=== PATIENT | male | born 1940 | race African-American/Black ===

== ENCOUNTER 2017-09-25 13:07 | Emergency (ER) | payer MEDICARE, OTHER ==
[2017-09-25] MEDS ORDERED: ASPIRIN 81 MG TABLET, CHEWABLE PO ONE (13:48)
--- NOTE | 2017-09-25 13:53 | ER Document Report ---
ED Medical Screen (RME) - General Chief Complaint: Epigastric Pain Stated Complaint: CONGESTION Time Seen by Provider: 09/25/17 13:45 Notes: Patient is a 76-year-old male is referred to the emergency department by Dr. De Guzman's office for chest pain evaluation. Patient states that for the past 2 weeks he has been having a burning pressure feeling that resolves with Tums. He also admits to feeling weak. Otherwise he denies any chest pain, cough, fever, chills. TRAVEL OUTSIDE OF THE [place] IN LAST 30 DAYS: No - Related Data Allergies/Adverse Reactions: No Known Allergies Allergy (Unverified 09/25/17 13:48) Past Medical History - Social History Chew tobacco use (# tins/day): No Frequency of alcohol use: None Drug Abuse: None - Past Medical History Cardiac Medical History: Reports: Hx Hypercholesterolemia, Hx Hypertension Renal/ Medical History: Denies: Hx Peritoneal Dialysis Physical Exam - Vital signs Vitals: Temp Pulse Resp BP Pulse Ox 98.4 F 77 14 114/65 100 09/25/17 13:15 09/25/17 13:15 09/25/17 13:15 09/25/17 13:15 09/25/17 13:15 - General General appearance: Appears well, Alert In distress: None - Respiratory Respiratory status: No respiratory distress Chest status: Nontender Breath sounds: Normal Chest palpation: Normal - Cardiovascular Rhythm: Regular Heart sounds: Normal auscultation, S1 appreciated, S2 appreciated Gallop: None auscultated Pulses: Normal: Radial - Abdominal Inspection: Normal Distension: No distension Tenderness: Nontender Course - Vital Signs Vital signs: Temp Pulse Resp BP Pulse Ox 98.4 F 77 14 114/65 100 09/25/17 13:15 09/25/17 13:15 09/25/17 13:15 09/25/17 13:15 09/25/17 13:15
--- NOTE | 2017-09-25 13:57 | EKG REPORT ---
SEVERITY:- ABNORMAL ECG - SINUS RHYTHM LEFT ANTERIOR FASCICULAR BLOCK ANTERIOR INFARCT, RECENT : Confirmed by: Talya Chen 25-Sep-2017 13:56:39
--- NOTE | 2017-09-25 14:13 | ER Document Report ---
ED Cardiac - General Chief Complaint: Epigastric Pain Stated Complaint: CONGESTION Time Seen by Provider: 09/25/17 13:45 Notes: The patient is a 76-year-old male, past medical history hypertension, presents with 2 weeks of epigastric pain and indigestion that would be relieved by Tums. He saw Dr. Barnes, his primary care physician earlier today, and was sent to Dr. Chen's office. Dr. Chen performed an EKG and noticed that he had ST elevations but Q waves are present. He sent the patient over to the ER for further evaluation and admission. TRAVEL OUTSIDE OF THE [place] IN LAST 30 DAYS: No - Related Data Allergies/Adverse Reactions: No Known Allergies Allergy (Unverified 09/25/17 13:48) Past Medical History - General Information source: Patient - Social History Smoking Status: Never Smoker Chew tobacco use (# tins/day): No Frequency of alcohol use: None Drug Abuse: None Family History: Reviewed & Not Pertinent Patient has suicidal ideation: No Patient has homicidal ideation: No - Past Medical History Cardiac Medical History: Reports: Hx Hypercholesterolemia, Hx Hypertension Renal/ Medical History: Denies: Hx Peritoneal Dialysis Review of Systems - Review of Systems Notes: REVIEW OF SYSTEMS: CONSTITUTIONAL: -fevers, -chills EENT: -eye pain, -difficulty swallowing, -nasal congestion CARDIOVASCULAR:-chest pain, -syncope. RESPIRATORY: -cough, -SOB GASTROINTESTINAL: +epigastric pain, - nausea, -vomiting, -diarrhea GENITOURINARY: -dysuria, -hematuria MUSCULOSKELETAL: -back pain, -neck pain SKIN: -rash or skin lesions. HEMATOLOGIC: -easy bruising or bleeding. LYMPHATIC: -swollen, enlarged glands. NEUROLOGICAL: -altered mental status or loss of consciousness, -headache, - neurologic symptoms PSYCHIATRIC: -anxiety, -depression. ALL OTHER SYSTEMS REVIEWED AND NEGATIVE. Physical Exam - Vital signs Vitals: Temp Pulse Resp BP Pulse Ox 98.4 F 77 14 114/65 100 09/25/17 13:15 09/25/17 13:15 09/25/17 13:15 09/25/17 13:15 09/25/17 13:15 - Notes Notes: PHYSICAL EXAMINATION: GENERAL: Well-appearing, well-nourished and in no acute distress. HEAD: Atraumatic, normocephalic. EYES: Pupils equal round and reactive to light, extraocular movements intact, sclera anicteric, conjunctiva are normal. ENT: nares patent, oropharynx clear without exudates. Moist mucous membranes. NECK: Normal range of motion, supple without lymphadenopathy LUNGS: Breath sounds clear to auscultation bilaterally and equal. No wheezes rales or rhonchi. HEART: Regular rate and rhythm without murmurs ABDOMEN: Soft, nontender, normoactive bowel sounds. No guarding, no rebound. No masses appreciated. EXTREMITIES: Normal range of motion, no pitting or edema. No cyanosis. NEUROLOGICAL: Cranial nerves grossly intact. Normal speech, normal gait. Normal sensory and motor exams. PSYCH: Normal mood, normal affect. SKIN: Warm, Dry, normal turgor, no rashes or lesions noted. Course - Re-evaluation Re-evalutation: Pt without any symptoms at this time. His EKG shows ST elevations in anterolateral leads with large Q-waves. Troponin is 5.23. Spoke to Dr. Chen ( Investigation Clerk who saw patient and EKG this morning and sent to [facility]) at 16:33 about results and he recommends transfer to facility with interventional cath capabilities. He recommends starting Lovenox. Pt remains chest pain and symptom -free. 09/25/17 16:41 [facility] Placed call to transfer center and awaiting callback. 09/25/17 18:57 Spoke to Investigation Clerk from [facility], Dr. Arthur, and he has accepted patient. Pt resting comfortably. Awaiting bed assignment. - Vital Signs Vital signs: Temp Pulse Resp BP Pulse Ox 98.4 F 77 16 108/64 98 09/25/17 13:15 09/25/17 13:15 09/25/17 18:18 09/25/17 18:18 09/25/17 18:18 - Laboratory Result Diagrams: 09/25/17 14:05 09/25/17 14:05 Laboratory results interpreted by me: 09/25/17 09/25/17 14:05 14:05 RBC 4.16 L Hgb 13.2 L RDW 14.1 H Potassium 3.4 L Carbon Dioxide 32 H Creatinine 1.31 H Est GFR (Non-Af Amer) 53 L - Diagnostic Test Radiology reviewed: Image reviewed, Reports reviewed Radiology results interpreted by me: CXR: NAD - EKG Interpretation by Me EKG shows normal: Sinus rhythm, [place], Intervals, QRS Complexes Rate: Normal When compared to previous EKG there are: No significant change Additional EKG results interpreted by me: Anterolateral ST elevations with Q-waves. Discharge - Discharge Clinical Impression: NSTEMI (non-ST elevated myocardial infarction) Condition: Serious Disposition: [facility] Referrals: ALANA BARNES MD [Primary Care Provider] - Follow up as needed
[2017-09-25 14:28] LABS: ABSOLUTE BASOPHILS # (AUTO) 0.1 10^3/uL (0.0-0.2); ABSOLUTE EOSINOPHILS # (AUTO) 0.2 10^3/uL (0.0-0.6); ABSOLUTE LYMPHOCYTES (AUTO) 1.8 10^3/uL (0.5-4.7); ABSOLUTE MONOCYTES (AUTO) 0.7 10^3/uL (0.1-1.4); ABSOLUTE NEUT (AUTO) 4.9 10^3/uL (1.7-8.2); BASOPHILS % (AUTO) 1.4 % (0-2); EOSINOPHILS % (AUTO) 2.3 % (0-6); HEMATOCRIT 38.4 % (37.9-51.0); HEMOGLOBIN 13.2 g/dL (13.5-17.0); HGB HCT DIFFERENCE 1.2; MEAN CORPUSCULAR HEMOGLOBIN 31.8 pg (27.0-33.4); MEAN CORPUSCULAR HGB CONC 34.5 g/dL (32.0-36.0); MEAN CORPUSCULAR VOLUME 92 fl (80-97); RED BLOOD COUNT 4.16 10^6/uL (4.35-5.55); RED CELL DISTRIBUTION WIDTH 14.1 % (11.5-14.0); SEGMENTED NEUTROPHILS % (AUTO) 64.3 % (42-78); WHITE BLOOD COUNT 7.7 10^3/uL (4.0-10.5)
--- NOTE | 2017-09-25 14:54 | RADIOLOGY REPORT (SQ) ---
EXAM DESCRIPTION: CHEST SINGLE VIEW COMPLETED DATE/TIME: 09/25/2017 2:29 pm REASON FOR STUDY: chest pain COMPARISON: 07/06/2009 EXAM PARAMETERS: NUMBER OF VIEWS: One view. TECHNIQUE: Single frontal radiographic view of the chest acquired. RADIATION DOSE: NA LIMITATIONS: Lordotic portable chest film with EKG leads present FINDINGS: LUNGS AND PLEURA: No opacities, masses or pneumothorax. No pleural effusion. MEDIASTINUM AND HILAR STRUCTURES: No masses. Contour normal. HEART AND VASCULAR STRUCTURES: Heart normal in size. Normal vasculature. BONES: No acute findings. HARDWARE: None in the chest. OTHER: No other significant finding. IMPRESSION: NO ACUTE RADIOGRAPHIC FINDING IN THE CHEST. TECHNICAL DOCUMENTATION: JOB ID: [id number] [employer]- All Rights Reserved
[2017-09-25 14:56] LABS: ALANINE AMINOTRANSFERASE 34 U/L (21-72); ALBUMIN 3.7 g/dL (3.5-5.0); ALKALINE PHOSPHATASE 62 U/L (38-126); ANION GAP 13 (5-19); ASPARTATE AMINO TRANSFERASE 45 U/L (17-59); BILIRUBIN,DIRECT 0.4 mg/dL (0.0-0.4); BILIRUBIN,TOTAL 0.5 mg/dL (0.2-1.3); BLOOD UREA NITROGEN 19 mg/dL (7-20); CALCIUM 9.4 mg/dL (8.4-10.2); CARBON DIOXIDE 32 mmol/L (22-30); CHLORIDE 100 mmol/L (98-107); CREATINE KINASE 134 U/L (55-170); CREATININE RESULT 1.31 mg/dL (0.52-1.25); GLUCOSE 95 mg/dL (75-110); POTASSIUM 3.4 mmol/L (3.6-5.0); SODIUM 144.7 mmol/L (137-145); TOTAL PROTEIN 7.8 g/dL (6.3-8.2)
[2017-09-25] MEDS ORDERED: ENOXAPARIN SODIUM INJ 100 MG/1 ML DISP.SYRIN SUBCUT SCH ×2 (16:45→18:00)
[2017-09-25 22:12] VITALS: BP 95/53
== END 2017-09-25 22:12 | disposition short-term general hospital (02) ==
LOC: ER 13:07
DX: I21.4 Non-ST elevation (NSTEMI) myocardial infarction (principal); I10 Essential (primary) hypertension; K30 Functional dyspepsia
CPT/HCPCS: 93005; 99285; 36415; 82550; 85025; 80053; 84484; 71010; 93010; A9270

== ENCOUNTER 2017-11-17 06:06 | Inpatient (IN) | payer MEDICARE, OTHER ==
[2017-11-17] MEDS ORDERED: FUROSEMIDE INJ/PF 40 MG/4 ML SDV IV ONE (06:53)
[2017-11-17 07:07] LABS: ABSOLUTE BASOPHILS # (AUTO) 0.1 10^3/uL (0.0-0.2); ABSOLUTE EOSINOPHILS # (AUTO) 0.3 10^3/uL (0.0-0.6); ABSOLUTE LYMPHOCYTES (AUTO) 1.4 10^3/uL (0.5-4.7); ABSOLUTE MONOCYTES (AUTO) 0.7 10^3/uL (0.1-1.4); ABSOLUTE NEUT (AUTO) 7.4 10^3/uL (1.7-8.2); BASOPHILS % (AUTO) 0.9 % (0-2); EOSINOPHILS % (AUTO) 2.8 % (0-6); HEMATOCRIT 36.3 % (37.9-51.0); HEMOGLOBIN 12.1 g/dL (13.5-17.0); LYMPHOCYTES % (AUTO) 14.1 % (13-45); MEAN CORPUSCULAR HEMOGLOBIN 31.3 pg (27.0-33.4); MEAN CORPUSCULAR HGB CONC 33.3 g/dL (32.0-36.0); MEAN CORPUSCULAR VOLUME 94 fl (80-97); MONOCYTES % (AUTO) 7.3 % (3-13); PLATELET COUNT 298 10^3/uL (150-450); RED BLOOD COUNT 3.86 10^6/uL (4.35-5.55); RED CELL DISTRIBUTION WIDTH 17.2 % (11.5-14.0); SEGMENTED NEUTROPHILS % (AUTO) 74.9 % (42-78); TOTAL CELLS COUNTED % (AUTO) 100 %; WHITE BLOOD COUNT 9.9 10^3/uL (4.0-10.5)
--- NOTE | 2017-11-17 07:07 | ER Document Report ---
ED General - General Mode of Arrival: Ambulatory Information source: Patient TRAVEL OUTSIDE OF THE [place] IN LAST 30 DAYS: No <LUIS CARLOS MONET - Last Filed: 11/17/17 15:44> <ZULEIMA MONTAÑO - Last Filed: 11/17/17 17:53> - General Chief Complaint: Shortness Of Breath Stated Complaint: DIFFICULTY BREATHING Time Seen by Provider: 11/17/17 06:40 Notes: Patient is a 77 year old male with a history of CABG presents to the emergency department complaining of difficulty breathing onset around 0000 this morning. Patient states his difficulty breathing is exacerbated when supine but relieved when sitting up. Patient also complains of urinary frequency but determined this is due to his prescription of Lasix. Patient denies any chest pain. PCP is Dr. De Guzman. (LUIS CARLOS MONET) - Related Data Allergies/Adverse Reactions: No Known Allergies Allergy (Verified 11/17/17 06:07) Home Medications: Current Home Medications Amiodarone HCl [Cordarone 200 mg Tablet] 200 mg PO Q12 11/17/17 [History] Aspirin [Ecotrin 81 mg EC Tablet] 81 mg PO DAILY 11/17/17 [History] Atorvastatin Calcium [Lipitor 40 mg Tablet] 40 mg PO DAILY 11/17/17 [History] Carvedilol [Coreg 12.5 mg Tablet] 12.5 mg PO Q12 11/17/17 [History] Furosemide [Lasix 40 mg Tablet] 40 mg PO DAILY 11/17/17 [History] Multivitamin [Tab-A-Naty (Multiple Vitamin) Tablet] 1 tab PO DAILY 11/17/17 [ History] Oxycodone HCl/Acetaminophen [Percocet 5-325 mg Tablet] 1 tab PO Q6HP PRN [History] Past Medical History - General Information source: Patient - Social History Smoking Status: Current Some Day Smoker Smoking Education Provided: Yes - > 4 mins Frequency of alcohol use: None Drug Abuse: Marijuana Family History: Reviewed & Not Pertinent Patient has suicidal ideation: No Patient has homicidal ideation: No - Past Medical History Cardiac Medical History: Reports: Hx Heart Attack, Hx Hypercholesterolemia, Hx Hypertension Past Surgical History: Reports: Hx Cardiac Surgery - bypass <LUIS CARLOS MONET - Last Filed: 11/17/17 15:44> Review of Systems - Review of Systems Constitutional: No symptoms reported EENT: No symptoms reported Cardiovascular: No symptoms reported Respiratory: See HPI Gastrointestinal: No symptoms reported Genitourinary: No symptoms reported Male Genitourinary: No symptoms reported Skin: No symptoms reported Hematologic/Lymphatic: No symptoms reported Neurological/Psychological: No symptoms reported -: Yes All other systems reviewed and negative <LUIS CARLOS MONET - Last Filed: 11/17/17 15:44> Physical Exam <TIERNEYHERIBERTOREGLA - Last Filed: 11/17/17 15:44> <ZULEIMA MONTAÑO - Last Filed: 11/17/17 17:53> - Vital signs Vitals: Temp Pulse Resp BP Pulse Ox 98.1 F 83 18 126/61 H 100 11/17/17 06:07 11/17/17 06:07 11/17/17 06:07 11/17/17 06:07 11/17/17 06:07 - Notes Notes: GENERAL: Alert, interacts well. No acute distress. HEAD: Normocephalic, atraumatic. EYES: Pupils equal, round, and reactive to light. Extraocular movements intact. ENT: Oral mucosa moist, tongue midline. NECK: Full range of motion. Supple. Trachea midline. LUNGS: Crackles in 2/3 or the lungs, no wheezes, rales, or rhonchi. No respiratory distress. HEART: Regular rate and rhythm. No murmurs, gallops, or rubs. ABDOMEN: Soft, non-tender. Non-distended. Bowel sounds present in all 4 quadrants. EXTREMITIES: Moves all 4 extremities spontaneously. Trace pitting edema in the left leg, radial and dorsalis pedis pulses 2/4 bilaterally. No cyanosis. NEUROLOGICAL: Alert and oriented x3. Normal speech. PSYCH: Normal affect, normal mood. SKIN: Warm, dry, normal turgor. No rashes or lesions noted. (TIERNEYLUIS CARLOS SHEPHERD) Course - Laboratory Result Diagrams: 11/17/17 06:49 11/17/17 06:49 <TIERNEY,TAMREGLA - Last Filed: 11/17/17 15:44> - Laboratory Result Diagrams: 11/17/17 06:49 11/17/17 06:49 <ZULEIMA MONTAÑO - Last Filed: 11/17/17 17:53> - Re-evaluation Re-evalutation: 11/17/17 08:45 CBC shows mild anemia with hemoglobin of 12, no leukocytosis, no shift, CMP grossly unremarkable, troponin indeterminate 0.034, this is the very low end of abnormal, proBNP elevated at 6300, urinalysis unremarkable, quite dilute. Chest x-ray radiology interpretation is right pleural effusion with right basilar opacities possibly representing atelectasis or consolidation. I favor atelectasis and my interpretation is that it does show cephalization with pulmonary edema fluid in the right middle fissure. Patient is not hypoxic, moderately tachypneic, in no respiratory distress as long as he is sitting up, does not require nitroglycerin drip or BiPAP. Patient is really quite stable. Discussed with Dr. Fernández who is covering for Dr. De Guzman. Dr. Fernádnez will admit the patient to the telemetry care unit. Gave a single dose of Lasix IV here. Patient understands and agrees with the plan as does the family. I did explain to the family and the patient that the hospital is quite full at this time, patient will likely stay in the emergency department for several hours until their discharges from the floor. (ZULEIMA MONTAÑO) - Vital Signs Vital signs: Temp Pulse Resp BP Pulse Ox 98.8 F 76 20 118/90 H 99 11/17/17 16:30 11/17/17 16:30 11/17/17 16:30 11/17/17 16:30 11/17/17 16:30 - Laboratory Laboratory results interpreted by me: 11/17/17 11/17/17 11/17/17 06:49 06:49 06:49 RBC 3.86 L Hgb 12.1 L Hct 36.3 L RDW 17.2 H NT-Pro-B Natriuret Pep 6300 H Amylase 118 H Urine Blood 11/17/17 07:26 RBC Hgb Hct RDW NT-Pro-B Natriuret Pep Amylase Urine Blood MODERATE H - EKG Interpretation by Me Additional EKG results interpreted by me: 11/17/17 08:47 EKG shows sinus rhythm at a rate of 76, first-degree AV block, significant Q waves anteriorly particularly V2 through V4, minimal [address] segment elevations V2 through V4 without any reciprocal depressions or T-wave inversions per my interpretation. (ZULEIMA MONTAÑO) Discharge <LUIS CARLOS MONET - Last Filed: 11/17/17 15:44> - Discharge Admitting Provider: Gab Fernández covering Unit Admitted: Telemetry <ZULEIMA MONTAÑO - Last Filed: 11/17/17 17:53> - Discharge Clinical Impression: Tobacco abuse, Tobacco abuse counseling Acute congestive heart failure Qualifiers: Congestive heart failure type: unspecified Qualified Code(s): I50.9 - Heart failure, unspecified Hypertension Qualifiers: Hypertension type: essential hypertension Qualified Code(s): I10 - Essential ( primary) hypertension Coronary artery disease Qualifiers: Coronary Disease-Associated Artery/Lesion type: unspecified vessel or lesion type [place] vs. transplanted heart: [place] heart Associated angina: without angina Qualified Code(s): I25.10 - Atherosclerotic heart disease of [place] coronary artery without angina pectoris Condition: Fair Disposition: ADMITTED INPATIENT Scribe Attestation: 11/17/17 17:53 I personally performed the services described in the documentation, reviewed and edited the documentation which was dictated to the scribe in my presence, and it accurately records my words and actions. (ZULEIMA MONTAÑO) Scribe Documentation - Scribe Written by Scribe:: Jass Quinonez, 11/17/2017 07:35 acting as scribe for :: Popeye <LUIS CARLOS MONET - Last Filed: 11/17/17 15:44>
[2017-11-17 07:30] LABS: ALANINE AMINOTRANSFERASE 24 U/L (21-72); ALBUMIN 3.5 g/dL (3.5-5.0); ALKALINE PHOSPHATASE 72 U/L (38-126); ANION GAP 13 (5-19); ASPARTATE AMINO TRANSFERASE 25 U/L (17-59); BILIRUBIN,DIRECT 0.3 mg/dL (0.0-0.4); BILIRUBIN,TOTAL 0.6 mg/dL (0.2-1.3); BLOOD UREA NITROGEN 15 mg/dL (7-20); CALCIUM 9.9 mg/dL (8.4-10.2); CARBON DIOXIDE 25 mmol/L (22-30); CHLORIDE 107 mmol/L (98-107); CREATINE KINASE 60 U/L (55-170); GLUCOSE 108 mg/dL (75-110); POTASSIUM 4.3 mmol/L (3.6-5.0); SODIUM 144.5 mmol/L (137-145); TOTAL PROTEIN 6.6 g/dL (6.3-8.2)
[2017-11-17 07:40] LABS: CREATINE KINASE MB 1.25 ng/mL (<4.55)
[2017-11-17 07:45] LABS: APPEARANCE,URINE CLEAR; BILIRUBIN,URINE NEGATIVE (NEGATIVE); COLOR,URINE YELLOW; GLUCOSE, URINE NEGATIVE (NEGATIVE); KETONES,URINE NEGATIVE (NEGATIVE); LEUKOCYTE ESTERASE,URINE NEGATIVE (NEGATIVE); NITRITE,URINE NEGATIVE (NEGATIVE); PROTEIN,URINE NEGATIVE (NEGATIVE); URINE SPECIFIC GRAVITY 1.006; UROBILINOGEN,URINE NEGATIVE mg/dL (<2.0)
--- NOTE | 2017-11-17 07:56 | EKG REPORT ---
SEVERITY:- ABNORMAL ECG - SINUS RHYTHM PROBABLE LEFT ATRIAL ABNORMALITY ANTERIOR INFARCT, AGE INDETERMINATE PROLONGED QT INTERVAL : Confirmed by: Trey Malave MD 17-Nov-2017 07:55:20
--- NOTE | 2017-11-17 08:00 | RADIOLOGY REPORT (SQ) ---
EXAM DESCRIPTION: CHEST SINGLE VIEW CLINICAL HISTORY: difficulty breathing COMPARISON: 09/25/2017 FINDINGS: Single frontal view of the chest. Median sternotomy. Cardiomegaly. Tortuosity of thoracic aorta. Right pleural effusion and right basilar opacities. No pneumothorax. Leads overlie the chest. No definite acute osseous abnormality. Upper abdominal soft tissues are unremarkable. IMPRESSION: 1. Right pleural effusion with right basilar opacities possibly representing atelectasis or consolidation.
[2017-11-17 08:05] LABS: TROPONIN I 0.034 ng/mL
[2017-11-17 10:02] LABS: PROTHROMBIN TIME 14.9 SEC (11.4-15.4)
[2017-11-17 10:03] LABS: PARTIAL THROMBOPLASTIN TIME 35.5 SEC (23.5-35.8)
[2017-11-17] MEDS: ENOXAPARIN SODIUM INJ 40 MG/0.4 ML DISP.SYRIN SUBCUT SCH (10:16)
[2017-11-17 10:30] LABS: LIPASE 59.8 U/L (23-300); PHOSPHORUS 3.9 mg/dL (2.5-4.5)
[2017-11-17 10:46] LABS: FREE T4 (FREE THYROXINE) 1.77 ng/dL (0.78-2.19)
[2017-11-17 11:00] LABS: THYROID STIMULATING HORMONE 2.87 uIU/mL (0.47-4.68)
[2017-11-17 12:32] LABS: CREATINE KINASE MB 1.41 ng/mL (<4.55); TROPONIN I 0.029 ng/mL
[2017-11-17 17:56] LABS: CREATINE KINASE MB 1.36 ng/mL (<4.55); TROPONIN I 0.048 ng/mL
[2017-11-17] MEDS ORDERED: OXYCODONE-ACETAMINOPHEN 5-325 MG TABLET PO PRN (18:29)
--- NOTE | 2017-11-17 18:43 | XCELERA REPORT ---
[address] [address] Transthoracic Echocardiogram Report Name: MAURICE BYNUM Age: 77 yrs Gender: Male : 1940 Patient Status: Inpatient Patient [address] Study Date: 11/17/2017 01:41 PM Height: 72 in Weight: 180 lb BSA: 2.0 m2 Procedure: A complete two-dimensional transthoracic echocardiogram was performed (2D, M-mode, spectral and color flow Doppler). The study was technically difficult with many images being suboptimal in quality. Reason For Study: chf Ordering Physician: JAYCOB BAY Performed By: Blanca Cartwright Interpretation Summary LV EF is 35% The study was technically difficult with many images being suboptimal in quality. Left ventricular systolic function is severely reduced. There is mild to moderate concentric left ventricular hypertrophy. The left ventricle is grossly normal size. Doppler measurements suggest pseudonormalized left ventricular relaxation, which is associated with grade II/IV or mild to moderate diastolic dysfunction There is mid to distal anterior wall akinesis There is apical wall akinesis The right ventricular systolic function is normal. The left atrial size is normal. The right atrium is normal. There is a mild to moderate amount of mitral regurgitation There is mild mitral stenosis There is a moderate amount of aortic regurgitation There is mild aortic stenosis There is a trace to mild amount of tricuspid regurgitation There is mild pulmonary hypertension by echo Right ventricular systolic pressure is estimated to be elevated at 30- 40mmHg. The aortic root is not well visualized. The inferior vena cava appeared normal and decreased < 50% with respiration (RAP 10-15 mmHg) There is no pericardial effusion. MMode/2D Measurements & Calculations RVDd: 2.7 cm LVIDd: 5.3 cmFS: 16.4 % Ao root diam: 2.9 cm IVSd: 1.4 cm LVIDs: 4.5 cmEDV(Teich): 137.6 ml LVPWd: 1.3 cmESV(Teich): 90.6 ml Ao root area: 6.5 cm2 EF(Teich): 34.2 % LA dimension: 3.3 cm LVOT diam: 2.0 cm LVOT area: 3.1 cm2 Doppler Measurements & Calculations MV E max toya: MV P1/2t max toya: Ao V2 max: AI max toya: 121.9 cm/sec 123.4 cm/sec 202.4 cm/sec 316.0 cm/sec MV A max toya: MV P1/2t: 60.0 msec Ao max PG: AI max P.8 cm/sec MVA(P1/2t): 3.7 cm2 16.4 mmHg 39.9 mmHg MV E/A: 0.91 MV dec slope: Ao V2 mean: AI dec slope: 602.5 cm/sec2 132.3 cm/sec 202.3 cm/sec2 Ao mean PG: AI P1/2t: 8.3 mmHg 457.5 msec Ao V2 VTI: 36.5 cm DARSHAN(I,D): 1.2 cm2 DARSHAN(V,D): 1.1 cm2 LV V1 max PG: SV(LVOT): 43.0 ml PA V2 max: TR max toya: 2.2 mmHg 79.0 cm/sec 279.6 cm/sec LV V1 mean PG: PA max PG: TR max P.1 mmHg 2.5 mmHg 31.3 mmHg LV V1 max: 73.5 cm/sec LV V1 mean: 47.2 cm/sec LV V1 VTI: 14.0 cm Left Ventricle The left ventricle is grossly normal size. There is mild to moderate concentric left ventricular hypertrophy. Left ventricular systolic function is severely reduced. LV EF is 35%. Doppler measurements suggest pseudonormalized left ventricular relaxation, which is associated with grade II/IV or mild to moderate diastolic dysfunction. There is mid to distal anterior wall akinesis. There is apical wall akinesis. Right Ventricle The right ventricle is grossly normal size. There is normal right ventricular wall thickness. The right ventricular systolic function is normal. Atria The right atrium is normal. The left atrial size is normal. Interarterial septum not well visualized and not well dopplered. Cannot comment on ASD/PFO presence. Mitral Valve There is moderate to severe mitral annular calcification. There is mild mitral stenosis. There is a mild to moderate amount of mitral regurgitation. Aortic Valve The aortic valve is moderately calcified. There is mild aortic stenosis. There is a moderate amount of aortic regurgitation. Tricuspid Valve The tricuspid valve is not well visualized, but is grossly normal. There is no tricuspid stenosis. There is a trace to mild amount of tricuspid regurgitation. There is mild pulmonary hypertension by echo. Right ventricular systolic pressure is estimated to be elevated at 30-40mmHg. Pulmonic Valve The pulmonic valve is not well visualized. Great Vessels The aortic root is not well visualized. The inferior vena cava appeared normal and decreased < 50% with respiration (RAP 10-15 mmHg). Effusions There is no pericardial effusion. : JAYCOB BAY > Talya Chen
[2017-11-17] MEDS ORDERED: ASPIRIN 81 MG TABLET, ENT COATED PO ONE (20:00)
[2017-11-17] MEDS ORDERED: FUROSEMIDE 40 MG TABLET PO ONE (20:00)
[2017-11-17] MEDS: SACUBITRIL/VALSARTAN 24 MG/26 MG TABLET PO SCH (21:32)
[2017-11-17] MEDS: AMIODARONE HCL 200 MG TABLET PO SCH (21:38)
[2017-11-17] MEDS: CARVEDILOL 12.5 MG TABLET PO SCH (21:39)
[2017-11-17] MEDS ORDERED: ATORVASTATIN CALCIUM 40 MG TABLET PO SCH (22:00)
--- NOTE | 2017-11-17 22:39 | PDOC H&P ---
History of Present Illness Admission Date/PCP: 11/17/17 09:22 History of Present Illness: MAURICE BYNUM is a 77 year old male, He has history of ischemic cardiomyopathy , coronary artery disease recently had coronary artery bypass grafting, September. He came to the emergency room this morning with complaint of progressive shortness of breath, coughing, orthopnea, in the emergency room he was evaluated, serum BNP was elevated. A 2D echo was done today it showed ejection fraction of 25% Past Medical History Cardiac Medical History: Reports: Coronary Artery Disease, Myocardial Infarction , Hyperlipidema, Hypertension Social History Smoking Status: Former Smoker Last Time Smoked: 11/06/1999 Frequency of Alcohol Use: None Hx Recreational Drug Use: Yes Drugs: Marijuana Hx Prescription Drug Abuse: No - Advance Directive Resuscitation Status: Full Code Family History Family History: Reviewed & Not Pertinent Parental Family History Reviewed: Yes Children Family History Reviewed: Yes Sibling(s) Family History Reviewed.: Yes Medication/Allergy Home Medications: Amiodarone HCl [Cordarone 200 mg Tablet] 200 mg PO Q12 11/17/17 Aspirin [Ecotrin 81 mg EC Tablet] 81 mg PO DAILY 11/17/17 Atorvastatin Calcium [Lipitor 40 mg Tablet] 40 mg PO DAILY 11/17/17 Carvedilol [Coreg 12.5 mg Tablet] 12.5 mg PO Q12 11/17/17 Furosemide [Lasix 40 mg Tablet] 40 mg PO DAILY 11/17/17 Multivitamin [Tab-A-Naty (Multiple Vitamin) Tablet] 1 tab PO DAILY 11/17/17 Oxycodone HCl/Acetaminophen [Percocet 5-325 mg Tablet] 1 tab PO Q6HP PRN Allergies/Adverse Reactions: No Known Allergies Allergy (Verified 11/17/17 06:07) Review of Systems Constitutional: ABSENT: chills, fever(s), headache(s), weight gain, weight loss Eyes: ABSENT: visual disturbances Ears: ABSENT: hearing changes Cardiovascular: PRESENT: dyspnea on exertion, orthropnea Respiratory: PRESENT: cough, dyspnea Gastrointestinal: ABSENT: abdominal pain, constipation, diarrhea, hematemesis, hematochezia, nausea, vomiting Genitourinary: ABSENT: dysuria, hematuria Musculoskeletal: ABSENT: joint swelling Integumentary: ABSENT: rash, wounds Neurological: ABSENT: abnormal gait, abnormal speech, confusion, dizziness, focal weakness, syncope Psychiatric: ABSENT: anxiety, depression, homidical ideation, suicidal ideation Endocrine: ABSENT: cold intolerance, heat intolerance, menstrual abnormalities, polydipsia, polyuria Hematologic/Lymphatic: ABSENT: easy bleeding, easy bruising, lymphadenopathy Physical Exam Vital Signs: Temp Pulse Resp BP Pulse Ox 98.8 F 74 20 118/90 H 99 11/17/17 16:30 11/17/17 19:00 11/17/17 16:30 11/17/17 16:30 11/17/17 16:30 Intake & Output 11/16/17 11/17/17 11/18/17 06:59 06:59 06:59 Intake Total 3 Balance 3 Weight 81.6 kg General appearance: PRESENT: no acute distress Eye exam: PRESENT: PERRLA Respiratory exam: PRESENT: rales Cardiovascular exam: PRESENT: +S1, +S2 GI/Abdominal exam: PRESENT: soft Extremities exam: ABSENT: full ROM, left AKA, right AKA, left BKA, right BKA, calf tenderness, joint swelling, pedal edema, tenderness, other Neurological exam: PRESENT: alert, CN II-XII grossly intact Results Laboratory Results: 11/17/17 11:34 Ammonia 11.3 11/17/17 11/17/17 11/17/17 11:34 11:34 17:15 Creatine Kinase 56 52 L CK-MB (CK-2) 1.41 Troponin I 0.029 11/17/17 17:15 Creatine Kinase CK-MB (CK-2) 1.36 Troponin I 0.048 Impressions: Chest X-Ray 11/17/17 06:18 IMPRESSION: 1. Right pleural effusion with right basilar opacities possibly representing atelectasis or consolidation. Assessment & Plan - Diagnosis (1) Acute systolic heart failure Is this a current diagnosis for this admission?: Yes Plan: Patient presents with acute systolic heart failure, he is presently on beta- oksana, carvedilol, he will be started on entresto. Check cardiac enzymes every 83 (2) Ischemic cardiomyopathy Is this a current diagnosis for this admission?: Yes (3) Coronary artery disease Qualifiers: Coronary Disease-Associated Artery/Lesion type: unspecified vessel or lesion type [place] vs. transplanted heart: [place] heart Associated angina: without angina Qualified Code(s): I25.10 - Atherosclerotic heart disease of [place] coronary artery without angina pectoris Is this a current diagnosis for this admission?: Yes
[2017-11-18 00:22] LABS: CREATINE KINASE MB 1.28 ng/mL (<4.55); TROPONIN I 0.029 ng/mL
[2017-11-18 06:28] LABS: ABSOLUTE BASOPHILS # (AUTO) 0.1 10^3/uL (0.0-0.2); ABSOLUTE EOSINOPHILS # (AUTO) 0.3 10^3/uL (0.0-0.6); ABSOLUTE LYMPHOCYTES (AUTO) 1.8 10^3/uL (0.5-4.7); ABSOLUTE MONOCYTES (AUTO) 0.8 10^3/uL (0.1-1.4); ABSOLUTE NEUT (AUTO) 4.5 10^3/uL (1.7-8.2); BASOPHILS % (AUTO) 0.7 % (0-2); EOSINOPHILS % (AUTO) 3.4 % (0-6); HEMATOCRIT 36.2 % (37.9-51.0); LYMPHOCYTES % (AUTO) 24.7 % (13-45); MEAN CORPUSCULAR HEMOGLOBIN 30.8 pg (27.0-33.4); MEAN CORPUSCULAR HGB CONC 33.1 g/dL (32.0-36.0); MEAN CORPUSCULAR VOLUME 93 fl (80-97); MONOCYTES % (AUTO) 10.5 % (3-13); PLATELET COUNT 254 10^3/uL (150-450); RED BLOOD COUNT 3.88 10^6/uL (4.35-5.55); RED CELL DISTRIBUTION WIDTH 17.2 % (11.5-14.0); SEGMENTED NEUTROPHILS % (AUTO) 60.7 % (42-78); TOTAL CELLS COUNTED % (AUTO) 100 %; WHITE BLOOD COUNT 7.4 10^3/uL (4.0-10.5)
[2017-11-18 06:58] LABS: ALANINE AMINOTRANSFERASE 33 U/L (21-72); ALBUMIN 3.3 g/dL (3.5-5.0); ALKALINE PHOSPHATASE 71 U/L (38-126); ANION GAP 13 (5-19); ASPARTATE AMINO TRANSFERASE 25 U/L (17-59); BILIRUBIN,DIRECT 0.2 mg/dL (0.0-0.4); BILIRUBIN,TOTAL 0.7 mg/dL (0.2-1.3); BLOOD UREA NITROGEN 14 mg/dL (7-20); CALCIUM 9.6 mg/dL (8.4-10.2); CARBON DIOXIDE 24 mmol/L (22-30); CHLORIDE 106 mmol/L (98-107); CHOLESTEROL 152.31 mg/dL (0-200); GLUCOSE 89 mg/dL (75-110); MAGNESIUM 1.9 mg/dL (1.6-2.3); POTASSIUM 3.8 mmol/L (3.6-5.0); SODIUM 143.2 mmol/L (137-145); TOTAL PROTEIN 6.3 g/dL (6.3-8.2); TRIGLYCERIDES 87 mg/dL (<150)
[2017-11-18 07:09] LABS: DIRECT LDL 93 mg/dL (<100)
[2017-11-18] MEDS: CARVEDILOL 12.5 MG TABLET PO SCH (09:28)
[2017-11-18] MEDS: AMIODARONE HCL 200 MG TABLET PO SCH (09:29)
[2017-11-18] MEDS: SACUBITRIL/VALSARTAN 24 MG/26 MG TABLET PO SCH (09:29)
[2017-11-18] MEDS: ENOXAPARIN SODIUM INJ 40 MG/0.4 ML DISP.SYRIN SUBCUT SCH (09:30)
[2017-11-18] MEDS ORDERED: FUROSEMIDE 40 MG TABLET PO SCH (10:00)
[2017-11-18] MEDS ORDERED: ASPIRIN 81 MG TABLET, ENT COATED PO SCH (10:00)
[2017-11-18] MEDS ORDERED: MULTIVITAMIN TABLET PO SCH (10:00)
--- NOTE | 2017-11-18 15:37 | PDOC DISCHARGE SUMMARY ---
General - Admit/Disc Date/PCP Admission Date/Primary Care Provider: 11/17/17 09:22 Discharge Date: 11/18/17 - Discharge Diagnosis (1) Acute systolic heart failure Is this a current diagnosis for this admission?: Yes (2) Ischemic cardiomyopathy Is this a current diagnosis for this admission?: Yes (3) Coronary artery disease Is this a current diagnosis for this admission?: Yes - Additional Information Resuscitation Status: Full Code Discharge Diet: Cardiac Discharge Activity: Activity As Tolerated Prescriptions: Sacubitril/Valsartan [Entresto 24 mg/26 mg Tablet] 1 tab PO Q12 #60 tablet Home Medications: Amiodarone HCl [Cordarone 200 mg Tablet] 200 mg PO Q12 11/17/17 Aspirin [Ecotrin 81 mg EC Tablet] 81 mg PO DAILY 11/17/17 Atorvastatin Calcium [Lipitor 40 mg Tablet] 40 mg PO DAILY 11/17/17 Carvedilol [Coreg 12.5 mg Tablet] 12.5 mg PO Q12 11/17/17 Furosemide [Lasix 40 mg Tablet] 40 mg PO DAILY 11/17/17 Multivitamin [Tab-A-Naty (Multiple Vitamin) Tablet] 1 tab PO DAILY 11/17/17 Oxycodone HCl/Acetaminophen [Percocet 5-325 mg Tablet] 1 tab PO Q6HP PRN Sacubitril/Valsartan [Entresto 24 mg/26 mg Tablet] 1 tab PO Q12 #60 tablet 11/18 History of Present Illness History of Present Illness: MAURICE BYNUM is a 77 year old male, He has history of ischemic cardiomyopathy , coronary artery disease recently had coronary artery bypass grafting, September. He came to the emergency room this morning with complaint of progressive shortness of breath, coughing, orthopnea, in the emergency room he was evaluated, serum BNP was elevated. A 2D echo was done today it showed ejection fraction of 25% Hospital Course Hospital Course: Patient was admitted for the management of acute systolic heart failure, he was treated with intravenous furosemide, medication was adjusted, he was started on entresto. A 2D echo was done showed ejection fraction of 35% Physical Exam Vital Signs: Temp Pulse Resp BP Pulse Ox 98.1 F 72 16 102/59 L 96 11/18/17 11:36 11/18/17 14:00 11/18/17 11:36 11/18/17 11:36 11/18/17 11:36 Intake & Output 11/17/17 11/18/17 11/19/17 06:59 06:59 06:59 Intake Total 1123 Balance 1123 Weight 82.6 kg General appearance: PRESENT: no acute distress, well-developed, well-nourished Head exam: PRESENT: atraumatic, normocephalic Eye exam: PRESENT: conjunctiva pink, EOMI, PERRLA Ear exam: PRESENT: normal external ear exam Mouth exam: PRESENT: moist, tongue midline Neck exam: PRESENT: full ROM Respiratory exam: PRESENT: clear to auscultation chris Cardiovascular exam: PRESENT: RRR, +S1, +S2 Pulses: PRESENT: normal dorsalis pedis pul, +2 pedal pulses bilateral Vascular exam: PRESENT: normal capillary refill GI/Abdominal exam: PRESENT: normal bowel sounds, soft Rectal exam: PRESENT: deferred Neurological exam: PRESENT: alert, awake, oriented to person, oriented to place , oriented to time, oriented to situation, CN II-XII grossly intact Psychiatric exam: PRESENT: appropriate affect, normal mood Skin exam: PRESENT: dry, intact, warm Results Laboratory Results: 11/18/17 05:52 11/18/17 05:52 11/18/17 11/18/17 05:52 05:52 WBC 7.4 RBC 3.88 L Hgb 12.0 L Hct 36.2 L MCV 93 MCH 30.8 MCHC 33.1 RDW 17.2 H Plt Count 254 Seg Neutrophils % 60.7 Lymphocytes % 24.7 Monocytes % 10.5 Eosinophils % 3.4 Basophils % 0.7 Absolute Neutrophils 4.5 Absolute Lymphocytes 1.8 Absolute Monocytes 0.8 Absolute Eosinophils 0.3 Absolute Basophils 0.1 Sodium 143.2 Potassium 3.8 Chloride 106 Carbon Dioxide 24 Anion Gap 13 BUN 14 Creatinine 1.10 Est GFR ( Amer) > 60 Est GFR (Non-Af Amer) > 60 Glucose 89 Calcium 9.6 Magnesium 1.9 Total Bilirubin 0.7 AST 25 ALT 33 Alkaline Phosphatase 71 Total Protein 6.3 Albumin 3.3 L Triglycerides 87 Cholesterol 152.31 LDL Cholesterol Direct 93 VLDL Cholesterol 17.0 HDL Cholesterol 30 L 11/17/17 11/17/17 11/17/17 11:34 11:34 17:15 Creatine Kinase 56 52 L CK-MB (CK-2) 1.41 Troponin I 0.029 11/17/17 11/17/17 11/17/17 17:15 23:49 23:49 Creatine Kinase 56 CK-MB (CK-2) 1.36 1.28 Troponin I 0.048 0.029 Impressions: Chest X-Ray 11/17/17 06:18 IMPRESSION: 1. Right pleural effusion with right basilar opacities possibly representing atelectasis or consolidation.
[2017-11-18 17:25] VITALS: BP 102/83
== END 2017-11-18 17:35 | disposition home or self-care (01) | DRG 293 ==
LOC: ER 06:06 → EH 09:22 → 4W 16:25
PROVIDERS: ADMIT Internal Medicine; ATTEND Internal Medicine
DX: I50.21 Acute systolic (congestive) heart failure (principal); I25.5 Ischemic cardiomyopathy; I25.10 Atherosclerotic heart disease of native coronary artery without angina pectoris; I10 Essential (primary) hypertension; E78.5 Hyperlipidemia, unspecified; Z79.82 Long term (current) use of aspirin; Z79.899 Other long term (current) drug therapy; I25.2 Old myocardial infarction; Z87.891 Personal history of nicotine dependence; Z95.1 Presence of aortocoronary bypass graft
CPT/HCPCS: 36415; 71045; 80048; 80053; 80061; 80076; 81001; 82140; 82150; 82550; 82553; 83036; 83690; 83735; 83880; 84100; 84439; 84443; 84484; 85025; 85610; 85730; 87040; 93005; 93010; 93306; 96374; 99285; 99406; J1650; J1940; J3490

== ENCOUNTER → 2020-06-29 | Outpatient (CLI) | payer MEDICARE, OTHER ==
--- NOTE | 2020-06-29 12:27 | RADIOLOGY REPORT (SQ) ---
EXAM DESCRIPTION: LUMBAR SPINE COMPLETE IMAGES COMPLETED DATE/TIME: 06/29/2020 11:00 am REASON FOR STUDY: BACK PAIN WITH RADICULOPATHY M54.10 RADICULOPATHY, SITE UNSPECIFIED COMPARISON: None. NUMBER OF VIEWS: Five views including obliques. TECHNIQUE: AP, lateral, oblique, and sacral radiographic images acquired of the lumbar spine. LIMITATIONS: None. FINDINGS: MINERALIZATION: Normal. SEGMENTATION: Normal. No transitional anatomy. ALIGNMENT: Normal. VERTEBRAE: Maintained height. No fracture or worrisome bone lesion. DISCS: There is mild disc narrowing from L3-S1. Marginal osteophytes are present anteriorly. POSTERIOR ELEMENTS: Hypertrophic facet changes are seen from C3-S1. HARDWARE: None in the spine. PARASPINAL SOFT TISSUES: Normal. PELVIS: Intact as visualized. No fractures or worrisome bone lesions. SI joints intact. OTHER: No other significant finding. IMPRESSION: Degenerative disc disease, spondylosis, and facet arthropathy. TECHNICAL DOCUMENTATION: JOB ID: [id number] 2010 [employer]- All Rights Reserved Reading location - IP/workstation name: [email or web address]
--- NOTE | 2020-06-29 12:30 | RADIOLOGY REPORT (SQ) ---
EXAM DESCRIPTION: HIPS BILATERAL IMAGES COMPLETED DATE/TIME: 06/29/2020 11:00 am REASON FOR STUDY: BACK PAIN WITH RADICULOPATHY M54.10 RADICULOPATHY, SITE UNSPECIFIED COMPARISON: None. NUMBER OF VIEWS: Two views TECHNIQUE: AP pelvis and additional frog-leg view of both hips. LIMITATIONS: None. FINDINGS: MINERALIZATION: Normal. HIPS: No acute fracture or dislocation. No worrisome bone lesions. PELVIS AND SACRUM: No acute fracture or dislocation. No worrisome bone lesions. PUBIS AND ISCHIUM: No acute fracture. LOWER LUMBAR SPINE: No significant findings as visualized. SOFT TISSUES: No findings. OTHER: No other significant finding. 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 TECHNICAL DOCUMENTATION: JOB ID: [id number] 2010 [employer]- All Rights Reserved Reading location - IP/workstation name: [email or web address]
== END ==
LOC: OD 10:32
PROVIDERS: ATTEND Family Medicine
DX: M54.10 Radiculopathy, site unspecified (principal)
CPT/HCPCS: 72110; 73522